=== PATIENT | female | born 1990 | race Caucasian/White ===

== ENCOUNTER 2016-12-27 02:53 | Emergency (ER) | payer OTHER ==
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
[~2016-12-27 02:53] MED LIST: ALBUTEROL17 GM INH; AMOXICILLIN500 M1 PO; ATARAX PO; BENZONATATE PO; CIPRO PO; CLEOCIN PO; DICLOFENAC PO; DOXYCYCLINE HY100 M1 PO; DOXYCYCLINE PO; ERYTHROMYCIN O3.5 GM OD; FLEXERIL PO; IBUPROFEN600 MG; IBUPROFEN600 MG PO; NO MEDICATIONS; ONDANSETRON ODT4 MG PO; PERCOCET 5-3251 TAB PO; PERCOCET 5/321 UDTAB PO; PERCOCET5/325 PO; PHENERGAN25 MG PO; PREDNISONE PO; PRENATAL FORMUL1 TA3; PRENATAL VITAMI1 TA5 PO; TESSALON200 MG PO; TYLENOL #3 PO; VICODIN 5/500 T1 TAB PO; VOLTAREN50 MG PO; VOLTAREN75 MG PO; XANAX1 MG PO; ZITHROMAX PO; ZITHROMAX1 G/PKT PO
== END 2016-12-27 04:04 | disposition home or self-care (01) ==
LOC: SED 02:53
DX: S46.911A Strain of unspecified muscle, fascia and tendon at shoulder and upper arm level, right arm, initial encounter (principal); F17.210 Nicotine dependence, cigarettes, uncomplicated; Z88.8 Allergy status to other drugs, medicaments and biological substances; X58.XXXA Exposure to other specified factors, initial encounter; Y92.89 Other specified places as the place of occurrence of the external cause
CPT/HCPCS: 73030; 99283

== ENCOUNTER 2017-01-14 14:34 | Emergency (ER) | payer OTHER | END 2017-01-14 14:50 | disposition home or self-care (01) | LOC: SED 14:34 | DX: S60.454A Superficial foreign body of right ring finger, initial encounter (principal); F41.9 Anxiety disorder, unspecified; F17.210 Nicotine dependence, cigarettes, uncomplicated; W49.04XA Ring or other jewelry causing external constriction, initial encounter | CPT/HCPCS: 99282; 99283 ==